=== PATIENT | female | born 1970 | race African-American/Black ===

== ENCOUNTER 2017-10-29 09:42 | Emergency (ER) | payer OTHER ==
[~2017-10-29] VITALS: Ht 154.9 cm; Wt 99.8 kg
[~2017-10-29 09:42] MED LIST: AZIT250T6 PO; HYDR25TA9 PO; LISI10TA2 PO; OXYC1TAB7 PO; PROAIR HFA8.5 GM INH; PROM118S2 PO
[2017-10-29] MEDS ORDERED: AMOX875T PO (10:11)
--- NOTE | 2017-10-29 10:16 | PHYS DOC ---
Past Medical History Past Medical History: GERD, Hypertension Past Surgical History: Cholecystectomy, Hysterectomy Additional Past Surgical Histo: R) great toe Additional Information: 1 pack about every 3 days. Alcohol Use: None Drug Use: None Adult General Chief Complaint Chief Complaint: EARACHE/EAR PAIN [facility] HPI Patient is a 47 year old female who presents with cough and cold symptoms with left ear pain. The patient states that she has had cold symptoms for the past 2 weeks and her left ear has gradually become very clogged and painful. She has been using mrxu-dyi-iroqogf cold medication that is safe for blood pressure with moderate relief of her cold symptoms. Nothing is relieving the ear pain. Review of Systems Review of Systems Constitutional: Denies fever or chills [] Eyes: Denies change in visual acuity, redness, or eye pain [] HENT: See history of present illness Respiratory: Denies cough or shortness of breath [] Cardiovascular: No additional information not addressed in HPI [] Integument: Denies rash or skin lesions [] Neurologic: Denies headache, focal weakness or sensory changes [] Endocrine: Denies polyuria or polydipsia [] All other systems were reviewed and found to be within normal limits, except as documented in this note. Allergies Allergies Allergies Coded Allergies Type Severity Reaction Last Updated Verified No Known Drug Allergies 01/08/14 No Physical Exam Physical Exam Constitutional: Well developed, well nourished, no acute distress, non-toxic appearance. [] HENT: Normocephalic, atraumatic, bilateral external ears normal, oropharynx moist, no oral exudates, nares are erythematous bilaterally with clear drainage , left tympanic membrane is erythematous and bulging Eyes: PERRLA, EOMI, conjunctiva normal, no discharge. [] Neck: Normal range of motion, no tenderness, supple, no stridor. [] Cardiovascular:Heart rate regular rhythm, no murmur [] Lungs & Thorax: Bilateral breath sounds clear to auscultation [] Neurologic: Alert and oriented X 3, normal motor function, normal sensory function, no focal deficits noted. [] Psychologic: Affect normal, judgement normal, mood normal. [] Current Patient Data Vital Signs Vital Signs Date Time Temp Pulse Resp B/P (MAP) Pulse Ox O2 Delivery O2 Flow Rate FiO2 10/29/17 09:56 98.4 103 20 95 Room Air 98.4 EKG EKG [] Radiology/Procedures Radiology/Procedures [] Course & Med Decision Making Course & Med Decision Making Pertinent Labs and Imaging studies reviewed. (See chart for details) []1. Otitis media 2. Upper respiratory infection You have been prescribed amoxicillin. Please take the medication until it is finished. You may continue to use her knft-fij-gnpcpoy cold medication. Follow- up with your primary care provider in one week if not improving or return to the ED if worsening. Dragon Disclaimer Dragon Disclaimer This electronic medical record was generated, in whole or in part, using a voice recognition dictation system. Departure Departure Impression: Primary Impression: Upper respiratory infection Additional Impression: Otitis media Disposition: 01 HOME, SELF-CARE Condition: STABLE Patient Instructions: Otitis Media, Adult, Fhpd-en-Eomp, Upper Respiratory Infection, Adult, Orqt-cu-Hmny Additional Instructions: You may continue to take your gxvn-bxg-rhyirjt cold medication. Please take the amoxicillin as prescribed. Follow-up with your primary care provider if not improving in one week. Scripts Amoxicillin (AMOXICILLIN) 875 Mg Tablet 1 TAB PO BID, #20 TAB Prov: STORM DESOUZA APRN 10/29/17 Problem Qualifiers STORM DESOUZA APRN Oct 29, 2017 10:16
[2017-10-29 10:34] VITALS: BP 137/89
== END 2017-10-29 10:39 | disposition home or self-care (01) ==
LOC: ER 09:42
DX: J06.9 Acute upper respiratory infection, unspecified (principal); H92.02 Otalgia, left ear; I10 Essential (primary) hypertension; K21.9 Gastro-esophageal reflux disease without esophagitis; F17.200 Nicotine dependence, unspecified, uncomplicated
CPT/HCPCS: 99283

== ENCOUNTER 2018-03-10 12:14 | Emergency (ER) | payer OTHER | END 2018-03-10 13:00 | disposition home or self-care (01) | LOC: ER 12:14 | DX: H60.91 Unspecified otitis externa, right ear (principal); K21.9 Gastro-esophageal reflux disease without esophagitis; I10 Essential (primary) hypertension | CPT/HCPCS: 99283 ==

== ENCOUNTER → 2018-06-04 | Outpatient (CLI) | payer OTHER ==
[2018-06-04] MEDS: ALBUTEROL SULFATE 2.5 MG/3 ML NEBU. NEB (08:13)
== END | disposition home or self-care (01) ==
LOC: PF 07:32
DX: M17.11 Unilateral primary osteoarthritis, right knee (principal); M25.461 Effusion, right knee; M25.761 Osteophyte, right knee; I10 Essential (primary) hypertension; J45.909 Unspecified asthma, uncomplicated; K21.9 Gastro-esophageal reflux disease without esophagitis
CPT/HCPCS: 73560; 94060; 94640; 94729; J7613

== ENCOUNTER 2018-07-15 12:01 | Emergency (ER) | payer OTHER ==
[~2018-07-15] VITALS: Ht 154.9 cm; Wt 118.8 kg
[~2018-07-15 12:01] MED LIST changes: +AMOX1TAB61 PO; +AMOX875T PO; +CIPR7.5D EACH EAR; -PROM118S2 PO; +PROM118S5 PO
[2018-07-15 12:21] VITALS: BP 137/83
--- NOTE | 2018-07-15 13:17 | PHYS DOC ---
Past Medical History Past Medical History: GERD, Hypertension Past Surgical History: Cholecystectomy, Hysterectomy Additional Past Surgical Histo: R) great toe Alcohol Use: None Drug Use: None Adult General Chief Complaint Chief Complaint: KNEE SWELLING [facility] HPI Patient is a 47 year old female who presents with bilateral knee pain with walking or standing times months. Patient states it feels like there is bone on bone. Patient rates her pain 8 out of 10. Patient states she's been taking Tylenol for pain and hasn't gotten any better. Patient states she has never seen a doctor for this pain. Patient does have a primary care doctor. Patient has no known drug allergies and she is on hydrochlorothiazide and Lasix for high blood pressure. Review of Systems Review of Systems Constitutional: Denies fever or chills [] Eyes: Denies change in visual acuity, redness, or eye pain [] HENT: Denies nasal congestion or sore throat [] Respiratory: Denies cough or shortness of breath [] Cardiovascular: No additional information not addressed in HPI [] GI: Denies abdominal pain, nausea, vomiting, bloody stools or diarrhea [] : Denies dysuria or hematuria [] Musculoskeletal: Bilateral knee pain. Denies back pain or joint pain [] Integument: Denies rash or skin lesions [] Neurologic: Denies headache, focal weakness or sensory changes [] Endocrine: Denies polyuria or polydipsia [] All other systems were reviewed and found to be within normal limits, except as documented in this note. Allergies Allergies Allergies Coded Allergies Type Severity Reaction Last Updated Verified No Known Drug Allergies 01/08/14 No Physical Exam Physical Exam Constitutional: Well developed, well nourished, no acute distress, non-toxic appearance. [] HENT: Normocephalic, atraumatic, bilateral external ears normal, oropharynx moist, no oral exudates, nose normal. [] Eyes: PERRLA, EOMI, conjunctiva normal, no discharge. [] Neck: Normal range of motion, no tenderness, supple, no stridor. [] Cardiovascular:Heart rate regular rhythm, no murmur [] Lungs & Thorax: Bilateral breath sounds clear to auscultation [] Abdomen: Bowel sounds normal, soft, no tenderness, no masses, no pulsatile masses. [] Skin: Warm, dry, no erythema, no rash. [] Back: No tenderness, no CVA tenderness. [] Extremities: Bilateral knee slight tenderness with palpation and limited ROM due to pain. No tenderness, no cyanosis, no clubbing, ROM intact, no edema. [] Neurologic: Alert and oriented X 3, normal motor function, normal sensory function, no focal deficits noted. [] Psychologic: Affect normal, judgement normal, mood normal. [] Current Patient Data Vital Signs Vital Signs Date Time Temp Pulse Resp B/P (MAP) Pulse Ox O2 Delivery O2 Flow Rate FiO2 07/15/18 12:21 98.7 95 16 137/83 (101) 92 Room Air 98.7 EKG EKG [] Radiology/Procedures Radiology/Procedures Bilateral Knee[] Impressions: [facility] [address] [place] [address] IMAGING REPORT Signed PATIENT: JENNIE LAMB ACCOUNT: [id number] : 1970 LOCATION: ER AGE: 47 SEX: F EXAM STATUS: REG ER ORD. PHYSICIAN: PARKER GOODRICH APRN REASON: Pain with walking PROCEDURE: KNEE BILAT 3V Three-view bilateral knee dated 07/15/2018. 06/04/2018 CLINICAL INDICATION: Pain no known injury. FINDINGS: Three-view bilateral knee show moderate tricompartmental degenerative change with prominent marginal osteophytes. There is asymmetric medial joint space narrowing bilaterally. Possible small bilateral pleural effusions. No intra-articular loose body. No fracture or malalignment. IMPRESSION: 1. Moderate tricompartmental primary DJD bilateral knee. 2. Possible small bilateral joint effusions. Electronically signed by: Humberto Guthrie MD (07/15/2018 1:47 PM) [id number] DICTATED and SIGNED BY: HUMBERTO GUTHRIE MD DATE: 07/15/18 5671 Course & Med Decision Making Course & Med Decision Making Upon examination patient has bilateral limited knee range of motion due to pain. Patient states that she has had this constant ijov-yd-lkib pain for months. Patient states that it hurts to walk or stand too long. Patient is very drowsy falling asleep in the chair is on talking to her. Patient states that she takes Tylenol for pain but doesn't do a whole lot. Patient rates her pain a 8 out of 10. Patient denies any injury. Patient has bilateral pedal pulses. There is no redness, deformity or swelling seen in bilateral knees. Patient denies shortness of breath or chest pain, vomiting, nausea, numbness or tingling. Patient is morbidly obese. She is afebrile. Patient is receiving bilateral knee x-rays. Bilateral knee x rays show moderate tricompartmental primary DJD bilateral knee and possible small bilateral joint effusions. Patient to follow up with orthopedics or primary care doctor patient to use ibuprofen or Tylenol for pain. [] Dragon Disclaimer Dragon Disclaimer This electronic medical record was generated, in whole or in part, using a voice recognition dictation system. Departure Departure Impression: Primary Impression: Knee pain Disposition: HOME, SELF-CARE Condition: STABLE Referrals: ALENA EAGLE MD (PCP) OWEN ARANDA MD Patient Instructions: Knee Pain Additional Instructions: Follow-up with orthopedics. Take ibuprofen or Tylenol for pain. Scripts Ibuprofen (IBUPROFEN) 600 Mg Tablet 600 MG PO PRN Q6HRS PRN for INFLAMMATION, #15 TAB Prov: PARKER GOODRICH APRN 07/15/18 Problem Qualifiers Primary Impression: Knee pain Chronicity: acute Laterality: bilateral Qualified Codes: M25.561 - Pain in right knee; M25.562 - Pain in left knee PARKER GOODRICH APRN Jul 15, 2018 13:17
--- NOTE | 2018-07-15 13:50 | RAD ---
Three-view bilateral knee dated 07/15/2018. 06/04/2018 CLINICAL INDICATION: Pain no known injury. FINDINGS: Three-view bilateral knee show moderate tricompartmental degenerative change with prominent marginal osteophytes. There is asymmetric medial joint space narrowing bilaterally. Possible small bilateral pleural effusions. No intra-articular loose body. No fracture or malalignment. IMPRESSION: 1. Moderate tricompartmental primary DJD bilateral knee. 2. Possible small bilateral joint effusions. Electronically signed by: Humberto Guthrie MD (07/15/2018 1:47 PM) [facility]
[2018-07-15] MEDS ORDERED: IBUP-1007 PO (14:21)
== END 2018-07-15 14:36 | disposition home or self-care (01) ==
LOC: ER 12:01
DX: M25.562 Pain in left knee (principal); M25.561 Pain in right knee; I10 Essential (primary) hypertension; K21.9 Gastro-esophageal reflux disease without esophagitis; Z90.49 Acquired absence of other specified parts of digestive tract; Z90.710 Acquired absence of both cervix and uterus
CPT/HCPCS: 73562; 99284

== ENCOUNTER 2018-07-20 10:52 | Emergency (ER) | payer OTHER ==
[~2018-07-20] VITALS: Ht 154.9 cm; Wt 131.1 kg
[~2018-07-20 10:52] MED LIST changes: +IBUP-1007 PO
[2018-07-20 11:03] VITALS: BP 175/110
[2018-07-20] MEDS ORDERED: DIPHTH,PERTUSS(ACELL),TET TOX 0.5 ML DISP.SYRIN. VAX IM ONE (11:30)
--- NOTE | 2018-07-20 12:10 | RAD ---
CT CERVICAL SPINE WO CONTRAST, CT HEAD AND MAXILLOFACIAL WO Clinical indications: PT HAS SLEEP DISORDER, FELL OFF TOILET AND HIT FACE ON FLOOR facial injury. Head injury. Neck pain. NONCONTRAST HEAD CT Technique: Noncontrast axial cross sectional scanning of the head was performed. PQRS compliance Statement One or more of the following individualized dose reduction techniques were utilized for these studies: 1. Automated exposure control 2. Adjustment of the mA and/or kV according to patient size 3. Use of iterative reconstruction technique Findings: No acute intracranial hemorrhage or midline shift or mass-effect or hydrocephalus or extra-axial fluid collection is seen. No focal hypodense area or sulci effacement is seen to indicate an acute infarct or edema radiographically. No skull fracture or pneumocephalus is seen. No opacification of the mastoid sinuses or the middle ear cavities is seen. Impression: No acute intracranial abnormality is seen. CT STUDY OF THE MAXILLOFACIAL BONES WITHOUT CONTRAST TECHNIQUE: Noncontrast helical CT scanning of the maxillofacial bones was performed. Multiplanar 2-D reconstructions were generated. FINDINGS: No opacification or air-fluid levels are seen within the paranasal sinuses. Zygomatic arch and zygoma is intact on both sides. The orbits and orbital floors are intact on both sides. Nasal bone is intact on both sides. No significant nasal septal deviation is evident. The nasal spine and maxilla and pterygoid plates are intact. No fracture of the mandible is evident. There is anterior subluxation of the mandibular condyle within the temporal fossa of both temporomandibular joints. Dental caries is evident involving the upper and lower teeth. Enlargement of the adenoids and both palatine tonsils and sublingual tonsils is seen. IMPRESSION: No acute fracture. Anterior subluxation of both TMJs. Dental caries. Enlargement of the adenoids and both palatine tonsils and sublingual tonsils. This may be seen with pharyngitis. CT STUDY OF THE CERVICAL SPINE WITHOUT CONTRAST TECHNIQUE: Noncontrast helical CT scanning of the cervical spine was performed. Multiplanar 2-D reconstructions were generated. FINDINGS: No acute fracture or discitis or osteolytic process is evident. Alignment is normal and no anterolisthesis or perching of facet joints is evident. IMPRESSION: No acute fracture. Electronically signed by: Jose M Felipe MD (07/20/2018 12:07 PM) [facility]
--- NOTE | 2018-07-20 12:35 | PHYS DOC ---
Past Medical History Past Medical History: Asthma, GERD, Hypertension, Other Additional Past Medical Histor: narcolepsy Past Surgical History: Cholecystectomy, Hysterectomy Additional Past Surgical Histo: R) great toe Alcohol Use: None Drug Use: None Adult General Chief Complaint Chief Complaint: MECHANICAL FALL HPI HPI Patient is a 47 year old female who presents with abrasions to her nose and upper lip after she fell on the toilet today. The patient states that she has been diagnosed with a sleep disorder and is awaiting disability. She states that she does have some neck pain along with her other injuries. She is not up to date on her tetanus booster. Review of Systems Review of Systems Constitutional: Denies fever or chills [] Respiratory: Denies cough or shortness of breath [] Cardiovascular: No additional information not addressed in HPI [] GI: Denies abdominal pain, nausea, vomiting, bloody stools or diarrhea [] : Denies dysuria or hematuria [] Musculoskeletal: See history of present illness Integument: See history of present illness Neurologic: Denies headache, focal weakness or sensory changes [] Endocrine: Denies polyuria or polydipsia [] All other systems were reviewed and found to be within normal limits, except as documented in this note. Current Medications Current Medications Current Medications Medications (Trade) Dose Ordered Sig/Kennedi Start Time Stop Time Status Last Admin Dose Admin Diphtheria/ Tetanus/Acell Pertussis (Boostrix) 0.5 ml ONCE ONCE 07/20/18 11:30 07/20/18 11:31 DC 07/20/18 12:38 0.5 ML Ibuprofen (Motrin) 800 mg STK-MED ONCE 07/20/18 12:46 07/20/18 12:47 DC Allergies Allergies Allergies Coded Allergies Type Severity Reaction Last Updated Verified No Known Drug Allergies 01/08/14 No Physical Exam Physical Exam Constitutional: Well developed, well nourished, no acute distress, non-toxic appearance. [] HENT: Normocephalic, bilateral external ears normal, oropharynx moist, no oral exudates, dental caries noted Eyes: PERRLA, EOMI, conjunctiva normal, no discharge. [] Neck: Normal range of motion,cervical tenderness, supple, no stridor. [] Cardiovascular:Heart rate regular rhythm, no murmur [] Lungs & Thorax: Bilateral breath sounds clear to auscultation [] Skin: There is an abrasion to the upper lip and tip of nose with mild edema to the right upper lip, no damaged teeth noted Neurologic: Alert and oriented X 3, normal motor function, normal sensory function, no focal deficits noted. [] Psychologic: Affect normal, judgement normal, mood normal. [] Current Patient Data Vital Signs Vital Signs Date Time Temp Pulse Resp B/P (MAP) Pulse Ox O2 Delivery O2 Flow Rate FiO2 07/20/18 11:03 98.8 89 20 175/110 (131) 94 Room Air 98.8 EKG EKG [] Radiology/Procedures Radiology/Procedures []PATIENT: JENNIE LAMB DACCOUNT: [id number]#: [id number] : 1970 LOCATION: ER AGE: 47 SEX: F EXAM STATUS: REG ER ORD. PHYSICIAN: STORM DESOUZA APRN REASON: fell striking face PROCEDURE: CT CERVICAL SPINE WO CONTRAST CT CERVICAL SPINE WO CONTRAST, CT HEAD AND MAXILLOFACIAL WO Clinical indications: PT HAS SLEEP DISORDER, FELL OFF TOILET AND HIT FACE ON FLOOR facial injury. Head injury. Neck pain. NONCONTRAST HEAD CT Technique: Noncontrast axial cross sectional scanning of the head was performed. PQRS compliance Statement One or more of the following individualized dose reduction techniques were utilized for these studies: 1. Automated exposure control 2. Adjustment of the mA and/or kV according to patient size 3. Use of iterative reconstruction technique Findings: No acute intracranial hemorrhage or midline shift or mass-effect or hydrocephalus or extra-axial fluid collection is seen. No focal hypodense area or sulci effacement is seen to indicate an acute infarct or edema radiographically. No skull fracture or pneumocephalus is seen. No opacification of the mastoid sinuses or the middle ear cavities is seen. Impression: No acute intracranial abnormality is seen. CT STUDY OF THE MAXILLOFACIAL BONES WITHOUT CONTRAST TECHNIQUE: Noncontrast helical CT scanning of the maxillofacial bones was performed. Multiplanar 2-D reconstructions were generated. FINDINGS: No opacification or air-fluid levels are seen within the paranasal sinuses. Zygomatic arch and zygoma is intact on both sides. The orbits and orbital floors are intact on both sides. Nasal bone is intact on both sides. No significant nasal septal deviation is evident. The nasal spine and maxilla and pterygoid plates are intact. No fracture of the mandible is evident. There is anterior subluxation of the mandibular condyle within the temporal fossa of both temporomandibular joints. Dental caries is evident involving the upper and lower teeth. Enlargement of the adenoids and both palatine tonsils and sublingual tonsils is seen. IMPRESSION: No acute fracture. Anterior subluxation of both TMJs. Dental caries. Enlargement of the adenoids and both palatine tonsils and sublingual tonsils. This may be seen with pharyngitis. CT STUDY OF THE CERVICAL SPINE WITHOUT CONTRAST TECHNIQUE: Noncontrast helical CT scanning of the cervical spine was performed. Multiplanar 2-D reconstructions were generated. FINDINGS: No acute fracture or discitis or osteolytic process is evident. Alignment is normal and no anterolisthesis or perching of facet joints is evident. IMPRESSION: No acute fracture. Electronically signed by: Alfred Felipe MD (07/20/2018 12:07 PM) [facility] DICTATED and SIGNED BY: ALFRED FELIPE MD DATE: 07/20/18 1154 PATIENT: JENNIE LAMB ACCOUNT: [id number] : 1970 LOCATION: ER AGE: 47 SEX: F EXAM STATUS: REG ER ORD. PHYSICIAN: STORM DESOUZA APRN REASON: fell striking face PROCEDURE: CT HEAD AND MAXILLOFACIAL WO CT CERVICAL SPINE WO CONTRAST, CT HEAD AND MAXILLOFACIAL WO Clinical indications: PT HAS SLEEP DISORDER, FELL OFF TOILET AND HIT FACE ON FLOOR facial injury. Head injury. Neck pain. NONCONTRAST HEAD CT Technique: Noncontrast axial cross sectional scanning of the head was performed. PQRS compliance Statement One or more of the following individualized dose reduction techniques were utilized for these studies: 1. Automated exposure control 2. Adjustment of the mA and/or kV according to patient size 3. Use of iterative reconstruction technique Findings: No acute intracranial hemorrhage or midline shift or mass-effect or hydrocephalus or extra-axial fluid collection is seen. No focal hypodense area or sulci effacement is seen to indicate an acute infarct or edema radiographically. No skull fracture or pneumocephalus is seen. No opacification of the mastoid sinuses or the middle ear cavities is seen. Impression: No acute intracranial abnormality is seen. CT STUDY OF THE MAXILLOFACIAL BONES WITHOUT CONTRAST TECHNIQUE: Noncontrast helical CT scanning of the maxillofacial bones was performed. Multiplanar 2-D reconstructions were generated. FINDINGS: No opacification or air-fluid levels are seen within the paranasal sinuses. Zygomatic arch and zygoma is intact on both sides. The orbits and orbital floors are intact on both sides. Nasal bone is intact on both sides. No significant nasal septal deviation is evident. The nasal spine and maxilla and pterygoid plates are intact. No fracture of the mandible is evident. There is anterior subluxation of the mandibular condyle within the temporal fossa of both temporomandibular joints. Dental caries is evident involving the upper and lower teeth. Enlargement of the adenoids and both palatine tonsils and sublingual tonsils is seen. IMPRESSION: No acute fracture. Anterior subluxation of both TMJs. Dental caries. Enlargement of the adenoids and both palatine tonsils and sublingual tonsils. This may be seen with pharyngitis. CT STUDY OF THE CERVICAL SPINE WITHOUT CONTRAST TECHNIQUE: Noncontrast helical CT scanning of the cervical spine was performed. Multiplanar 2-D reconstructions were generated. FINDINGS: No acute fracture or discitis or osteolytic process is evident. Alignment is normal and no anterolisthesis or perching of facet joints is evident. IMPRESSION: No acute fracture. Electronically signed by: Alfred Felipe MD (07/20/2018 12:07 PM) [facility] DICTATED and SIGNED BY: ALFRED FELIPE MD DATE: 07/20/18 1154 Course & Med Decision Making Course & Med Decision Making Pertinent Labs and Imaging studies reviewed. (See chart for details) The patient was given ibuprofen for her headache. Dragon Disclaimer Dragon Disclaimer This electronic medical record was generated, in whole or in part, using a voice recognition dictation system. Departure Departure Impression: Primary Impression: Abrasion Additional Impression: Dental caries Disposition: 01 HOME, SELF-CARE Condition: STABLE Referrals: ALENA EAGLE MD (PCP) Patient Instructions: Abrasions, Dental Caries Additional Instructions: Keep the wounds clean and dry. Follow up with your PCP if not improving in 3 days or return to the ED if worsening. Problem Qualifiers STORM DESOUZA APRN Jul 20, 2018 12:35
[2018-07-20] MEDS ORDERED: IBUPROFEN 800 MG TABLET. PO ONE ×2 (12:45→12:46)
== END 2018-07-20 12:52 | disposition home or self-care (01) ==
LOC: ER 10:52
DX: S00.31XA Abrasion of nose, initial encounter (principal); S00.511A Abrasion of lip, initial encounter; K21.9 Gastro-esophageal reflux disease without esophagitis; I10 Essential (primary) hypertension; J45.909 Unspecified asthma, uncomplicated; W18.11XA Fall from or off toilet without subsequent striking against object, initial encounter; Y93.89 Activity, other specified; Y92.89 Other specified places as the place of occurrence of the external cause; Y99.8 Other external cause status
CPT/HCPCS: 70450; 70486; 72125; 90471; 90715; 99284-25

== ENCOUNTER 2018-08-19 14:26 | Emergency (ER) | payer OTHER ==
[~2018-08-19] VITALS: Ht 154.9 cm; Wt 124.7 kg
--- NOTE | 2018-08-19 16:09 | PHYS DOC ---
Past Medical History Past Medical History: Asthma, GERD, Hypertension, Other Additional Past Medical Histor: narcolepsy Past Surgical History: Cholecystectomy, Hysterectomy Additional Past Surgical Histo: R) great toe Alcohol Use: None Drug Use: None Adult General Chief Complaint Chief Complaint: VAGINAL BLEEDING HPI HPI Patient is a 47 year old female with history of hypertension, acid reflux, asthma, who presents today complaining of vaginal bleeding, patient states she voided this afternoon and when she wiped herself she noted some blood on the toilet paper. She states she's had a full hysterectomy and she's not had any bleeding for the last 3 years. Patient denies any fever. Denies any nausea vomiting denies any injury. Review of Systems Review of Systems Constitutional: Denies fever or chills [] Eyes: Denies change in visual acuity, redness, or eye pain [] HENT: Denies nasal congestion or sore throat [] Respiratory: Denies cough or shortness of breath [] Cardiovascular: No additional information not addressed in HPI [] GI: Reports vaginal bleeding. All other systems were reviewed and found to be within normal limits, except as documented in this note. Allergies Allergies Allergies Coded Allergies Type Severity Reaction Last Updated Verified No Known Drug Allergies 01/08/14 No Physical Exam Physical Exam Constitutional: Well developed, well nourished, no acute distress, non-toxic appearance. [] HENT: Normocephalic, atraumatic, bilateral external ears normal, oropharynx moist, no oral exudates, nose normal. [] Eyes: PERRLA, EOMI, conjunctiva normal, no discharge. [] Neck: Normal range of motion, no tenderness, supple, no stridor. [] Cardiovascular:Heart rate regular rhythm, no murmur [] Lungs & Thorax: Bilateral breath sounds clear to auscultation [] Abdomen: Bowel sounds normal, soft, no tenderness, no masses, no pulsatile masses. [] Pelvic exam External pelvic appears normal no cervix, no adnexal tenderness, no bleeding noted on physical exam Skin: Warm, dry, no erythema, no rash. [] Back: No tenderness, no CVA tenderness. [] Extremities: No tenderness, no cyanosis, no clubbing, ROM intact, no edema. [] Neurologic: Alert and oriented X 3, normal motor function, normal sensory function, no focal deficits noted. [] Psychologic: Affect normal, judgement normal, mood normal. [] Current Patient Data Vital Signs Vital Signs Date Time Temp Pulse Resp B/P (MAP) Pulse Ox O2 Delivery O2 Flow Rate FiO2 08/19/18 16:35 90 18 160/110 (127) 99 Room Air 08/19/18 15:35 99.0 99.0 Lab Values Laboratory Tests Test 08/19/18 15:50 Urine Collection Type Unknown Urine Color Yellow Urine Clarity Clear Urine pH 6.5 Urine Specific [place] 1.015 Urine Protein Negative mg/dL (NEG-TRACE) Urine Glucose (UA) Negative mg/dL (NEG) Urine Ketones (Stick) Negative mg/dL (NEG) Urine Blood Trace (NEG) Urine Nitrite Negative (NEG) Urine Bilirubin Negative (NEG) Urine Urobilinogen Dipstick 1.0 mg/dL (0.2 mg/dL) Urine Leukocyte Esterase Small (NEG) Urine RBC Occ /HPF (0-2) Urine WBC 11-20 /HPF (0-4) Urine Squamous Epithelial Cells Few /LPF Urine Bacteria Moderate /HPF (0-FEW) Urine Hyaline Casts Few /HPF Urine Mucus Slight /LPF Urine Trichomonas Present Microbiology 08/19/18 Wet Prep - Final, Complete EKG EKG [] Radiology/Procedures Radiology/Procedures []PROCEDURE: CT ABDOMEN PELVIS WO CONTRAST CT scan of the abdomen and pelvis without contrast 08/19/2018 CLINICAL HISTORY: Vaginal bleeding. TECHNIQUE: Unenhanced contiguous, 5 mm axial sections were obtained through the abdomen and pelvis. One or more of the following individualized dose reduction techniques were utilized for this study: 1. Automated exposure control. 2. Adjustment of the mA and/or kV according to patient size. 3. Use of iterative reconstruction technique. FINDINGS: Comparison is made to an ultrasound of the right upper quadrant abdomen dated 07/07/2017. Images through the lung bases demonstrate minimal dependent subsegmental atelectasis bilaterally. The liver, spleen, pancreas, adrenal glands and left kidney are within normal limits. A 3 mm nonobstructing calculus is seen involving the lower pole of the right kidney. The abdominal aorta tapers normally. Surgical clips are seen within the gallbladder fossa consistent with a cholecystectomy. No free fluid or free air is seen within the abdomen. There is no evidence of bowel obstruction. Air and stool is seen throughout the colon. The appendix is well-visualized and is within normal limits. Images through the pelvis demonstrate the urinary bladder distended with urine. Calcifications are seen within the pelvis consistent with phleboliths. No free fluid is seen. A 2.9 cm oval-shaped low-attenuation structure is seen in the right adnexa which likely represents a right ovarian cyst. The uterus is not visualized consistent with the patient's history of a hysterectomy. Minimal S-shaped curvature of the thoracolumbar spine is seen. Degenerative changes are seen involving lower thoracic and throughout the lumbar spine and both hips. IMPRESSION: 1. 2.9 cm probable right ovarian cyst. 2. No additional acute abnormality is seen. Electronically signed by: Patrick Loredo MD (08/19/2018 5:10 PM) [facility] DICTATED and SIGNED BY: PATRICK LOREDO MD DATE: 08/19/181700 Course & Med Decision Making Course & Med Decision Making Pertinent Labs and Imaging studies reviewed. (See chart for details) This is a 47-year-old female patient presented to the ED today complaining of vaginal bleeding that she noted today, she has history of hysterectomy. There was no active bleeding on physical exam. Urine analysis is positive for UTI, CT of the abdomen and pelvic was positive for probable right ovarian cyst. Wet prep noted for BV. Patient was discharged on cephalexin, and Flagyl. Follow-up with [facility] in 1-2 weeks. Provided return precautions and discharged in stable condition. Dragon Disclaimer Dragon Disclaimer This electronic medical record was generated, in whole or in part, using a voice recognition dictation system. Departure Departure Impression: Primary Impression: Right ovarian cyst Additional Impression: Urinary tract infection Disposition: HOME, SELF-CARE Condition: STABLE Referrals: ALENA EAGLE MD (PCP) Follow-up with your [facility] in in 1-2 weeks for the ovarian cyst Patient Instructions: Ovarian Cyst, [id number], Urinary Tract Infection Additional Instructions: You were evaluated in the emergency room for vaginal bleeding. Your CT of the abdomen and pelvic was noted for possible right ovarian cyst. This needs to be followed up by an [facility] in 6 weeks to make sure it clears out. You also were positive for urinary tract infection and bacterial vaginosis, we put you on antibiotics, ensure you complete them. Scripts Benzonatate (TESSALON PERLE) 100 Mg Capsule 1 CAP PO TID, #60 CAP Prov: MUTUNGA,SHEN [employer] [employer] MANAGER 08/19/18 Metronidazole (FLAGYL) 500 Mg Tablet 1 TAB PO BID, #14 TAB Prov: SHEN ELIZONDO APRN 08/19/18 Cephalexin (CEPHALEXIN) 500 Mg Tablet 1 TAB PO BID, #14 TAB Prov: SHEN ELIZONDO APRN 08/19/18 Problem Qualifiers Additional Impression: Urinary tract infection Urinary tract infection type: site unspecified Hematuria presence: without hematuria Qualified Codes: N39.0 - Urinary tract infection, site not specified SHEN ELIZONDO APRN Aug 19, 2018 16:09
[2018-08-19 16:16] LABS: BILIRUBIN,URINE NEGATIVE (NEG); CLARITY,URINE CLEAR; COLOR,URINE YELLOW; NITRITE,URINE NEGATIVE (NEG); PH,URINE 6.5; PROTEIN,URINE NEGATIVE (NEG-TRACE)
[2018-08-19 16:42] LABS: BACTERIA,URINE MODERATE /HPF (0-FEW); RBC,URINE OCC /HPF (0-2); SQUAMOUS EPITHELIAL CELL,UR FEW /LPF
[2018-08-19 16:43] LABS: HYALINE CASTS, URINE FEW /HPF; TRICHOMONAS,URINE PRESENT
--- NOTE | 2018-08-19 17:14 | RAD ---
CT scan of the abdomen and pelvis without contrast 08/19/2018 CLINICAL HISTORY: Vaginal bleeding. TECHNIQUE: Unenhanced contiguous, 5 mm axial sections were obtained through the abdomen and pelvis. One or more of the following individualized dose reduction techniques were utilized for this study: 1. Automated exposure control. 2. Adjustment of the mA and/or kV according to patient size. 3. Use of iterative reconstruction technique. FINDINGS: Comparison is made to an ultrasound of the right upper quadrant abdomen dated 07/07/2017. Images through the lung bases demonstrate minimal dependent subsegmental atelectasis bilaterally. The liver, spleen, pancreas, adrenal glands and left kidney are within normal limits. A 3 mm nonobstructing calculus is seen involving the lower pole of the right kidney. The abdominal aorta tapers normally. Surgical clips are seen within the gallbladder fossa consistent with a cholecystectomy. No free fluid or free air is seen within the abdomen. There is no evidence of bowel obstruction. Air and stool is seen throughout the colon. The appendix is well-visualized and is within normal limits. Images through the pelvis demonstrate the urinary bladder distended with urine. Calcifications are seen within the pelvis consistent with phleboliths. No free fluid is seen. A 2.9 cm oval-shaped low-attenuation structure is seen in the right adnexa which likely represents a right ovarian cyst. The uterus is not visualized consistent with the patient's history of a hysterectomy. Minimal S-shaped curvature of the thoracolumbar spine is seen. Degenerative changes are seen involving lower thoracic and throughout the lumbar spine and both hips. IMPRESSION: 1. 2.9 cm probable right ovarian cyst. 2. No additional acute abnormality is seen. Electronically signed by: Patrick Sanchez MD (08/19/2018 5:10 PM) [facility]
[2018-08-19 17:35] VITALS: BP 160/108
[2018-08-19] MEDS ORDERED: CEPH500T PO (17:44)
[2018-08-19] MEDS ORDERED: METR500T PO (17:44)
[2018-08-19] MEDS ORDERED: BENZ100C PO (17:59)
[2018-08-20 14:32] LABS: GC PROBE Negative (Negative)
== END 2018-08-19 17:55 | disposition home or self-care (01) ==
LOC: ER 14:26
DX: N83.201 Unspecified ovarian cyst, right side (principal); N39.0 Urinary tract infection, site not specified; J45.909 Unspecified asthma, uncomplicated; K21.9 Gastro-esophageal reflux disease without esophagitis; I10 Essential (primary) hypertension; Z90.710 Acquired absence of both cervix and uterus; Z90.49 Acquired absence of other specified parts of digestive tract
CPT/HCPCS: 74176; 81001; 87086; 87491; 87591; 99285; Q0111

== ENCOUNTER 2021-08-15 17:40 | Emergency (ER) | payer OTHER ==
[~2021-08-15 17:40] MED LIST changes: +ALBU2.5V8 INH; +BENZ100C PO; +CEPH500T PO; +HYDR-2145 PO; -HYDR25TA9 PO; +LISI10TA16 PO; -LISI10TA2 PO; +METR500T PO; -PROAIR HFA8.5 GM INH
== END 2021-08-15 22:16 | disposition left against medical advice (07) ==
LOC: ER 17:40
DX: R05 Cough (principal); R09.81 Nasal congestion; Z53.21 Procedure and treatment not carried out due to patient leaving prior to being seen by health care provider